=== PATIENT | female | born 1995 | race Hispanic/Latino ===

== ENCOUNTER 2020-01-02 16:53 | Emergency (ER) | payer OTHER | END 2020-01-02 19:30 | disposition home or self-care (01) | LOC: EDH 16:53 | DX: S29.9XXA Unspecified injury of thorax, initial encounter (principal); V59.50XA Passenger in pick-up truck or van injured in collision with unspecified motor vehicles in traffic accident, initial encounter; Y93.89 Activity, other specified; Y92.488 Other paved roadways as the place of occurrence of the external cause; Y99.8 Other external cause status ==